=== PATIENT | female | born 1990 | race Caucasian/White ===

== ENCOUNTER 2024-09-28 20:00 | Inpatient (IN) | payer OTHER ==
[2024-09-28] MEDS ORDERED: BUTORPHANOL TARTRATE 2 MG/ML VIAL IVPB ONE (20:58)
[2024-09-28] MEDS ORDERED: PROMETHAZINE HCL 25 MG/1 ML VIAL IVPB ONE (20:58)
[2024-09-28 21:30] LABS: ABSOLUTE IMMATURE GRANULOCYTES 0.09 x10^3/uL (0.0-0.031); BASOPHILS # 0.05 x10^3/uL (0.01-0.08); EOSINOPHIL % 0.4 % (0.7-5.8); EOSINOPHILS # 0.07 x10^3/uL (0.04-0.36); HEMATOCRIT 37.8 % (34.1-44.9); HEMOGLOBIN 12.3 g/dL (11.2-15.7); MCHC 32.5 g/dl (32.2-35.5); MEAN CELL VOLUME 83.1 fl (79.4-94.8); MEAN PLT VOLUME 8.5 fl (9.4-12.3); MONOCYTE # 0.61 x10^3/uL (0.24-0.86); MONOCYTE % 3.4 % (4.7-12.5); PLATELET COUNT 360 x10^3/uL (182-369); RDW 13.4 % (12.1-16.8)
[2024-09-28 21:37] LABS: INR 1.07 (0.83-1.09); PROTHROMBIN TIME (PATIENT) 11.8 SEC (9.7-13.0)
[2024-09-28 21:40] LABS: ACTIVATED PTT 28.9 SECONDS (25.2-36.5)
[2024-09-28 21:47] LABS: CHLORIDE 102 mmol/L (98-107); POTASSIUM 3.8 mmol/L (3.5-5.1); SODIUM 136 mmol/L (136-145)
[2024-09-28 21:50] LABS: ALBUMIN 2.8 g/dl (3.4-5.0); ANION GAP 7 mmol/L (4-13); BLOOD UREA NITROGEN 8.2 mg/dL (7-18); CALCIUM 9.2 mg/dL (8.5-10.1); CO2 26 mmol/L (21-32)
[2024-09-28 21:51] LABS: GLUCOSE,RANDOM 137 mg/dL (74-106)
[2024-09-28 21:53] LABS: SGPT/ALT 34 U/L (13-61); URIC ACID 4.2 mg/dL (2.6-7.2)
[2024-09-28 21:54] LABS: CREATININE 0.6 mg/dL (0.55-1.3); SGOT/AST 20 U/L (15-37)
[2024-09-28 21:55] LABS: BILIRUBIN,TOTAL 0.4 mg/dL (0.2-1); TOT PROT 6.8 g/dl (6.4-8.2)
[2024-09-28 21:56] LABS: ALK PHOS 156 U/L (45-117)
[2024-09-28] MEDS: ELECTROLYTE-148 SOLN 1,000 ML IV SCH (22:30)
[2024-09-28 22:50] VITALS: BMI 50.6
[2024-09-28] MEDS ORDERED: AMPICILLIN SODIUM 2 GM VIAL ONE (23:15)
[2024-09-28] MEDS: DINOPROSTONE 10 MG VAGINAL SUPPOSITORY VG ONE (23:35)
[2024-09-28] MEDS: AMPICILLIN - 2 GM in SODIUM CHLORIDE 100 ML IVPB ONE (23:45)
[2024-09-29] MEDS: AMPICILLIN - 1 GM in SODIUM CHLORIDE 100 ML IVPB SCH ×2 (03:45→07:37)
[2024-09-29] MEDS ORDERED: AMPICILLIN SODIUM 1 GM VIAL ONE ×6 (04:19→23:35)
[2024-09-29] MEDS ORDERED: NIFEdipine E.R. 30 MG TABLET PO ONE (08:52)
[2024-09-29] MEDS ORDERED: NIFEdipine 10 MG CAPSULE (FP) ONE (09:00)
[2024-09-29] MEDS ORDERED: NIFEdipine 10 MG CAPSULE (FP) PO ONE (09:00)
[2024-09-29] MEDS: NIFEdipine E.R. 30 MG TABLET PO ONE (09:13)
[2024-09-29] MEDS ORDERED: OXYTOCIN 30 UNITS in 0.9% NS 30 UNIT/500 ML INFUS.BAG IVPB ONE (12:09)
[2024-09-29] MEDS: OXYTOCIN 30 UNITS in 0.9% NS 30 UNIT/500 ML INFUS.BAG IVPB SCH (12:22)
[2024-09-29] MEDS ORDERED: FENTANYL/BUPIVACAINE/NS/PF - PCEA - 50 ML DISP.SYRIN EP ONE ×2 (16:13→20:38)
[2024-09-29] MEDS ORDERED: NALOXONE HCL 0.4 MG/ML VIAL IVPUSH PRN (17:01)
[2024-09-29] MEDS: FENTANYL/BUPIVACAINE/NS/PF - PCEA - 50 ML DISP.SYRIN EP SCH (17:07)
[2024-09-29] MEDS ORDERED: SODIUM CHLORIDE 100 ML IVPB ONE ×2 (19:42→23:35)
[2024-09-29] MEDS ORDERED: OXYTOCIN 20 UNITS in 0.9% NS 20 UNIT/1,000 ML INFUS.BAG IV ONE (23:35)
[2024-09-30] MEDS: OXYTOCIN 20 UNITS in 0.9% NS 20 UNIT/1,000 ML INFUS.BAG IV SCH (00:25)
[2024-09-30] MEDS ORDERED: IBUPROFEN 600 MG TABLET (FP) PO ONE (00:57)
[2024-09-30] MEDS: IBUPROFEN 600 MG TABLET (FP) PO PRN (01:00)
[2024-09-30] MEDS ORDERED: WITCH HAZEL 50% (TUCKS) 40 PAD/JAR PAD TP PRN (01:28)
[2024-09-30] MEDS ORDERED: oxyCODONE HCL 5 MG TABLET PO PRN (01:28)
[2024-09-30] MEDS ORDERED: BISACODYL 10 MG SUPP.RECT RC PRN (01:28)
[2024-09-30] MEDS ORDERED: BENZOCAINE 28 GM HEMORRHOIDAL OINTMENT TP PRN (01:28)
[2024-09-30 01:45] LABS: CORD BASE EXCESS -5.3 mmol/L (0-2); CORD HCO3 20.4 mmHg (20-29); CORD PCO2 40.4 mmHg (30-78); CORD pH 7.321 (7.14-7.44)
[2024-09-30] MEDS: BENZOCAINE 20% 57 GM BOTTLE TP PRN (10:13)
[2024-09-30] MEDS: FERROUS SO4 325 MG TABLET (FP) PO SCH (10:14)
[2024-09-30] MEDS: PRENATAL VITAMINS W/ FOLIC ACID TABLET (FP) PO SCH (10:14)
[2024-09-30] MEDS: NIFEdipine E.R. 30 MG TABLET PO SCH (10:14)
[2024-09-30 18:55] VITALS: RESP 18
[2024-09-30] MEDS: ACETAMINOPHEN 325 MG TABLET (FP) PO PRN (21:15)
[2024-10-01 07:58] LABS: ABSOLUTE IMMATURE GRANULOCYTES 0.08 x10^3/uL (0.0-0.031); BASOPHILS # 0.04 x10^3/uL (0.01-0.08); EOSINOPHIL % 0.9 % (0.7-5.8); EOSINOPHILS # 0.12 x10^3/uL (0.04-0.36); HEMATOCRIT 29.3 % (34.1-44.9); HEMOGLOBIN 9.5 g/dL (11.2-15.7); MCHC 32.4 g/dl (32.2-35.5); MEAN CELL VOLUME 83.5 fl (79.4-94.8); MEAN PLT VOLUME 8.8 fl (9.4-12.3); MONOCYTE # 0.61 x10^3/uL (0.24-0.86); MONOCYTE % 4.4 % (4.7-12.5); PLATELET COUNT 240 x10^3/uL (182-369); RDW 13.7 % (12.1-16.8)
[2024-10-01] MEDS ORDERED: SENNOSIDES/DOCUSATE COMBO (SENNA PLUS) TABLET (UD) PO PRN (22:00)
[2024-10-02 12:55] VITALS: BP 135/87; PULSE 84; TEMP 98.4
== END 2024-10-02 15:00 | disposition home or self-care (01) | DRG 807 ==
LOC: JLDR 20:00 → J3W 09-30 03:00
PROVIDERS: ADMIT Obstetrics & Gynecology; ATTEND Obstetrics & Gynecology
PROC: 0KQM0ZZ Repair Perineum Muscle, Open Approach (ICD-10-PCS; principal; 2024-09-30)
PROC: 10E0XZZ Delivery of Products of Conception, External Approach (ICD-10-PCS; 2024-09-30)
DX: O13.4 Gestational [pregnancy-induced] hypertension without significant proteinuria, complicating childbirth (principal); Z37.0 Single live birth; O69.81X0 Labor and delivery complicated by cord around neck, without compression, not applicable or unspecified; O70.1 Second degree perineal laceration during delivery; Z3A.37 37 weeks gestation of pregnancy
CPT/HCPCS: 36415; 36600; 59409; 80053; 82570; 82803; 84156; 84550; 85025; 85610; 85730; 86850; 86900; 86901; 88307-TC